=== PATIENT | female | born 1955 | race Caucasian/White ===

== ENCOUNTER 2022-05-20 13:28 | Emergency (ER) | payer MEDICARE ==
[~2022-05-20] VITALS: Ht 157.5 cm; Wt 80.0 kg
[2022-05-20 14:44] LABS: Basophils # (auto) 0.1 10 ^3/uL (0-0.2); Basophils % (auto) 0.4 % (0.0-2.0); Eosinophils # (auto) 0.4 10 ^3/uL (0-0.8); Eosinophils % (auto) 3.1 % (0.0-7.0); Hematocrit 41.7 % (36.0-46.0); Hemoglobin 13.1 g/dL (12.2-16.2); Lymphocytes # (auto) 3.4 10 ^3/uL (0.4-5.4); Lymphocytes % (auto) 25.5 % (10.0-50.0); Mean Corpuscular Hemoglobin 24.1 pg (28.0-32.0); Mean Corpuscular Hgb Conc. 31.4 g/dL (32.0-36.0); Mean Corpuscular Volume 76.8 fL (80.0-100.0); Monocytes # (auto) 0.6 10 ^3/uL (0-1.3); Monocytes % (auto) 4.5 % (0.0-12.0); Neutrophils # (auto) 8.9 10 ^3/uL (1.6-8.6); Neutrophils % (auto) 66.5 % (37.0-80.0); Nucleated Red Blood Cells % 0.1 %; Red Blood Cells 5.42 10^6/uL (4.0-5.20); Red Cell Distribution Width 13.8 % (11.8-14.3); White Blood Cell 13.4 10^3/uL (4.4-10.8)
[2022-05-20 15:05] LABS: Calcium 9.4 mg/dL (8.5-10.1); Magnesium 2.3 mg/dL (1.6-2.6); Potassium 4.2 mmol/L (3.5-5.1)
[2022-05-20 15:08] LABS: BUN/Creatinine Ratio 10.5; Bilirubin, Total 0.4 mg/dL (0.2-1.0); Total Protein 7.7 g/dL (6.4-8.2)
[2022-05-20 15:52] LABS: INR 0.94 (0.9-1.15); Partial Thromboplastin Time 32.5 sec (24.6-33.4)
[2022-05-20 17:13] VITALS: BP 146/80
== END 2022-05-20 17:28 | disposition short-term general hospital (02) ==
LOC: ER 13:28
DX: I62.00 Nontraumatic subdural hemorrhage, unspecified (principal); I10 Essential (primary) hypertension; Z90.710 Acquired absence of both cervix and uterus
CPT/HCPCS: 36415; 70450; 80053; 83735; 85025; 85610; 85730; 93005; 96365; 99285; J1953; J7060